=== PATIENT | female | born 2005 | race Caucasian/White ===

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

== ENCOUNTER → 2024-06-16 | Outpatient (CLI) | payer BC ==
[2024-06-16 23:01] LABS: Basophils # (A) 0.05 X 10*3/uL (0.00-0.10); Basophils % (A) 1.1 %; Eosinophils # (A) 0.04 X 10*3/uL (0.04-0.35); Eosinophils % (A) 0.9 %; HCT 41.7 % (37.2-46.3); HGB 13.7 g/dL (12.0-15.0); Lymphocytes # (A) 1.97 X 10*3/uL (0.90-5.00); Lymphocytes % (A) 42.8 %; MCH 29.2 pg (27.0-32.0); MCHC 32.9 g/dL (32.0-37.0); MCV 88.9 FL (80.0-97.0); Monocytes # (A) 0.42 X 10*3/uL (0.20-1.00); Monocytes % (A) 9.1 %; NRBC Per 100 WBC 0 X 10*3/uL (0.00-0.01); Neutrophils # (A) 2.11 X 10*3/uL (1.80-7.70); Neutrophils % (A) 45.9 %; Platelet Count 330 X 10*3/uL (140-440); RBC 4.69 X 10*6/uL (4.10-5.20); RDW 12.6 % (11.5-14.5)
[2024-06-16 23:19] LABS: ALT 20 U/L (8-44); HCG,Quantitative Serum <3.0 mIU/mL (0.0-6.0); Total Bilirubin 0.5 mg/dL (0.3-1.2)
== END | disposition home or self-care (01) ==
LOC: LABWHC1 08:55
PROVIDERS: ATTEND Dermatology
DX: L70.0 Acne vulgaris (principal)
CPT/HCPCS: 36415; 82247; 82465; 84460; 84478; 84702; 85025

== ENCOUNTER → 2024-09-17 | Outpatient (CLI) | payer BC ==
[2024-09-17 19:49] LABS: Basophils # (A) 0.06 X 10*3/uL (0.00-0.10); Basophils % (A) 0.8 %; Eosinophils # (A) 0.06 X 10*3/uL (0.04-0.35); Eosinophils % (A) 0.8 %; HCT 40.4 % (37.2-46.3); HGB 13.5 g/dL (12.0-15.0); Lymphocytes # (A) 2.58 X 10*3/uL (0.90-5.00); Lymphocytes % (A) 32.9 %; MCH 29.9 pg (27.0-32.0); MCHC 33.4 g/dL (32.0-37.0); MCV 89.4 FL (80.0-97.0); Mean Platelet Volume 8.9 FL (9.5-12.2); Monocytes # (A) 0.44 X 10*3/uL (0.20-1.00); Monocytes % (A) 5.6 %; NRBC Per 100 WBC 0 X 10*3/uL (0.00-0.01); Neutrophils # (A) 4.69 X 10*3/uL (1.80-7.70); Neutrophils % (A) 59.6 %; Platelet Count 346 X 10*3/uL (140-440); RBC 4.52 X 10*6/uL (4.10-5.20); RDW 12.7 % (11.5-14.5); WBC 7.85 X 10*3/uL (4.50-10.00)
[2024-09-17 20:40] LABS: ALT 16 U/L (8-44); HCG,Quantitative Serum <3.0 mIU/mL (0.0-6.0); Total Bilirubin 0.3 mg/dL (0.3-1.2)
== END | disposition home or self-care (01) ==
LOC: LABWHC1 16:10
PROVIDERS: ATTEND Dermatology
DX: L70.0 Acne vulgaris (principal)
CPT/HCPCS: 36415; 82247; 82465; 84460; 84478; 84702; 85025